=== PATIENT | female | born 1950 | race African-American/Black ===

== ENCOUNTER 2020-04-27 09:43 | Outpatient (CLI) | payer MEDICARE, SELFPAY ==
--- NOTE | ~2020-04-27 | MM_ITS ---
EXAMINATION: MM screening luisito BI w teagan HISTORY: Screening mammogram TECHNIQUE: Craniocaudal and mediolateral oblique 3-D tomosynthesis images were obtained and synthetic 2-D images were generated. CAD analysis was submitted and interpreted. COMPARISON: 03/10/2019, 02/25/2018, 02/23/2017 bilateral digital screening mammogram examinations BREAST PARENCHYMAL COMPOSITION: FINDINGS: There is no evidence of suspicious mass, calcification, or architectural distortion to sugg est malignancy in either breast. There has been no suspicious interval change. IMPRESSION: 1. No mammographic evidence of malignancy. 2. Recommend routine screening mammography in one year. BI-RADS Category 1: Negative Reviewed, dictated and finalized at location A.
== END 2020-04-27 09:44 | disposition home or self-care (01) ==
PROVIDERS: PCP Family Medicine; Visit Provider Family Medicine
DX: Z12.31 Encounter for screening mammogram for malignant neoplasm of breast (principal)
CPT/HCPCS: 77063; 77067

== ENCOUNTER 2021-05-17 07:59 | Outpatient (CLI) | payer MEDICARE, SELFPAY ==
--- NOTE | ~2021-05-17 | MM_ITS ---
EXAMINATION: MM screening luisito BI w teagan HISTORY: Screening mammogram TECHNIQUE: Craniocaudal and mediolateral oblique 3-D tomosynthesis images were obtained and synthetic 2-D images were generated. CAD analysis was submitted and interpreted. COMPARISON: 04/27/2020, 03/10/2019, 02/25/2018 bilateral digital screening mammogram examinations BREAST PARENCHYMAL COMPOSITION: The breasts are heterogeneously dense, which may obscure small masses . FINDINGS: There is no evidence of suspicious mass, calcification, or architectural distortion to sugg est malignancy in either breast. There has been no suspicious interval change. IMPRESSION: 1. No mammographic evidence of malignancy. 2. Recommend routine screening mammography in one year. BI-RADS Category 1: Negative Reviewed, dictated and finalized at location A.
== END 2021-05-17 08:00 | disposition home or self-care (01) ==
PROVIDERS: PCP Family Medicine; Visit Provider Physician Assistant
DX: Z12.31 Encounter for screening mammogram for malignant neoplasm of breast (principal)
CPT/HCPCS: 77063; 77067

== ENCOUNTER 2022-07-12 12:16 | Outpatient (CLI) | payer MEDICARE, SELFPAY ==
--- NOTE | ~2022-07-12 | MM_ITS ---
EXAMINATION: MM screening luisito BI w teagan HISTORY: Screening TECHNIQUE: Craniocaudal and mediolateral oblique 3-D tomosynthesis images were obtained and synthetic 2-D images were generated. CAD analysis was submitted and interpreted. COMPARISON: Comparison to multiple prior studies sequentially, with oldest reviewed study dated 02/23. BREAST PARENCHYMAL COMPOSITION: The breasts are heterogeneously dense, which may obscure small masses FINDINGS: There is no evidence of suspicious mass, calcification, or architectural distortion to sugg est malignancy in either breast. There has been no suspicious interval change. IMPRESSION: 1. No mammographic evidence of malignancy. 2. Recommend routine screening mammography in one year. BI-RADS Category 1: Negative Reviewed, dictated and finalized at location D.
== END 2022-07-12 12:17 | disposition home or self-care (01) ==
PROVIDERS: PCP Family Medicine; Visit Provider Family Medicine
DX: Z12.31 Encounter for screening mammogram for malignant neoplasm of breast (principal)
CPT/HCPCS: 77063; 77067

== ENCOUNTER 2022-08-22 14:38 | Outpatient (CLI) | payer MEDICARE, SELFPAY ==
--- NOTE | ~2022-08-22 | DEXA_ITS ---
Bone Density Report Name: SHANE RYAN Age: 71 Sex: Female Ethnicity: Black Date of : 1950 Indication: postmenopausal; screening for osteoporosis; hysterectomy; secondary osteoporosis; Referring Provider: SEAN CONNOLLY Study: Bone densitometry was performed. Exam Date: August 22, 2022 Accession number: [id number] Bone Density: Region BMD T-score Z-score Classification AP Spine(L1-L4) 0.871 -1.6 -0.2 Osteopenia Femoral Neck (Left) 0.602 -2.2 -1.0 Osteopenia Total Hip (Left) 0.811 -1.1 -0.3 Osteopenia Femoral Neck (Right) 0.556 -2.6 -1.3 Osteoporosis Total Hip (Right) 0.809 -1.1 -0.3 Osteopenia Total Hip Mean 0.810 -1.1 -0.3 Osteopenia World Health Organization criteria for BMD impression classify patients as: Normal (T-score at or above -1.0), Osteopenia (T-score between -1.0 and -2.5), or Osteoporosis (T-score at or below -2.5). 10-year Fracture Risk: FRAX not reported because: Some T-score for Spine Total or Hip Total or Femoral Neck at or below -2.5 Treated for osteoporosis Clinical Information Provided by Patient: Has secondary osteoporosis Is being treated for osteoporosis Has used the following medications: Fosamax (i.e. alendronate), HRT (i.e. estrogen/hormone therapy), Vitamin D Has the following medical conditions: Hysterectomy Patient maximum height was 65 Menopause Age: 31 Does not regularly consume dairy products Drinks caffeinated beverages Onset of menses at age 17 Number of children 2 Impression: The patient has osteoporosis, based on the Right Femoral Neck T-score. Discussion: It is important to ask patients whether they are taking their medications and to encourage continued and appropriate compliance with their osteoporosis therapies to reduce fracture risk. It is also important to review their risk factors and encourage appropriate calcium and vitamin D intakes, exercise, fall prevention and other lifestyle measures. Follow-Up: Consider a repeat BMD and Vertebral Fracture Assessment (VFA) exam in 2 years or sooner if medically necessary, to reassess this patient's status. Reported by: MALICK on 08/22/2022 3:12:00 PM. Reviewed, dictated and finalized at location ACarlos ARMANDO
== END 2022-08-22 14:39 | disposition home or self-care (01) ==
PROVIDERS: PCP Family Medicine; Visit Provider Nurse Practitioner
DX: M81.0 Age-related osteoporosis without current pathological fracture (principal); M85.88 Other specified disorders of bone density and structure, other site; M85.852 Other specified disorders of bone density and structure, left thigh; M85.851 Other specified disorders of bone density and structure, right thigh
CPT/HCPCS: 77080

== ENCOUNTER 2022-09-14 06:41 | Outpatient (CLI) | payer MEDICARE, SELFPAY ==
--- NOTE | ~2022-09-14 | MR_ITS ---
MRI of the abdomen: Clinical indication: Adrenal mass. Technique: Coronal SSFSE ARC, WATER:coronal LAVA-FLEX, Coronal 2D FIESTA FatSat, Axial SSFSE BH ARC, Axial 3D DualEcho BH, Axial SSFSE-IR, Axial DWI b=500, Axial 2D FIESTA FatSat, pre and dynamic postco ntrast Axial LAVA ARC, postcontrast Coronal In and Opposed phase LAVA FLEX. 12 cc of MultiHance was a dministered intravenously for postcontrast imaging. Findings: There is a 9-10 mm left adrenal nodule, which demonstrates signal loss on out of phase T1-w eighted imaging relative to in phase and aging. This is can cysts and with an adenoma. Liver, gallbladder, spleen, pancreas, right adrenal gland, and right kidney are unremarkable. Small h yperdense left renal cysts noted. No evidence for intrahepatic or extrahepatic biliary dilatation. No lymphadenopathy. No aortic aneurysm. Visualized bowel loops are unremarkable. No ascites. No abnormal postcontrast enhancement. Impression: 9 mm left adrenal adenoma. Reviewed, dictated and finalized at [facility]. EDORE HOLD Impression: 9 mm left adrenal adenoma.
== END 2022-09-14 06:42 | disposition home or self-care (01) ==
PROVIDERS: PCP Family Medicine; Visit Provider Nurse Practitioner
DX: R93.5 Abnormal findings on diagnostic imaging of other abdominal regions, including retroperitoneum (principal); D35.02 Benign neoplasm of left adrenal gland
CPT/HCPCS: 74183; A9577

== ENCOUNTER → 2023-05-29 09:24 | Outpatient (CLI) | payer MEDICARE, SELFPAY ==
--- NOTE | ~2023-05-29 | XR_ITS ---
Left Shoulder Technique: AP and axillary views were obtained. Clinical History: Pain Findings: No fracture or dislocation is seen. Osseous alignment is anatomic. The glenohumeral and acr omioclavicular joint spaces are preserved. Soft tissues are unremarkable. Impression: Unremarkable left shoulder radiographs. Reviewed, dictated and finalized at [facility]. Impression: Unremarkable left shoulder radiographs.
--- NOTE | ~2023-05-29 | XR_ITS ---
Left Knee Technique: AP, lateral, and sunrise views were obtained. Clinical History: Pain Findings: No fracture or dislocation is seen. Osseous alignment is anatomic. There is mild degenerati ve change of the medial patellofemoral compartments. Soft tissues are unremarkable. No joint effusion is seen. Impression: Mild degenerative change of the medial and patellofemoral compartments. Reviewed, dictated and finalized at location . Impression: Mild degenerative change of the medial and patellofemoral compartments.
== END ==
PROVIDERS: PCP Nurse Practitioner; Visit Provider Nurse Practitioner
DX: M25.512 Pain in left shoulder (principal); M17.12 Unilateral primary osteoarthritis, left knee
CPT/HCPCS: 73030; 73562

== ENCOUNTER 2023-07-17 13:39 | Outpatient (CLI) | payer MEDICARE, SELFPAY ==
--- NOTE | ~2023-07-17 | MM_ITS ---
EXAMINATION: MM screening luisito BI w teagan HISTORY: Screening TECHNIQUE: Craniocaudal and mediolateral oblique 3-D tomosynthesis images were obtained and synthetic 2-D images were generated. CAD analysis was submitted and interpreted. COMPARISON: Comparison to multiple prior studies sequentially, with oldest reviewed study dated 02/23. BREAST PARENCHYMAL COMPOSITION: The breasts are heterogeneously dense, which may obscure small masses FINDINGS: There is no evidence of suspicious mass, calcification, or architectural distortion to sugg est malignancy in either breast. There has been no suspicious interval change. IMPRESSION: 1. No mammographic evidence of malignancy. 2. Recommend routine screening mammography in one year. BI-RADS Category 1: Negative Reviewed, dictated and finalized at location A. FING MANAGER
== END 2023-07-17 13:40 | disposition home or self-care (01) ==
LOC: CHSIMG 13:40
PROVIDERS: PCP Family Medicine; Visit Provider Family Medicine
DX: Z12.31 Encounter for screening mammogram for malignant neoplasm of breast (principal)
CPT/HCPCS: 77063; 77067

== ENCOUNTER 2023-10-09 13:17 | Outpatient (CLI) | payer MEDICARE, SELFPAY ==
--- NOTE | ~2023-10-09 | MR_ITS ---
MR arthrogram of the left shoulder Technique: Following intra-articular injection of dilute gadolinium, axial T2 fat-sat and T1 fat-sat images, coronal T2 fat-sat and T1 fat-sat images, and sagittal T1-weighted and T2 fat-sat images were performed.. Clinical History: Impingement Findings: There is moderate AC joint degenerative change with subchondral spur at the subacromion, an d bony productive change of the distal clavicle. Coracoclavicular, coracoacromial, and coracohumeral ligaments appear intact. Supraspinatus and infraspinatus tendons are intact, without partial or full-thickness tear. There is mild to moderate tendinosis. Subscapularis tendon is intact. Tendon of long head of the biceps is int act. There is superior labral tear. Inferior glenohumeral ligament is intact. No contrast extravasation into the subacromial/subdeltoid b ursa. No muscle atrophy or edema. There is focal chondromalacia at the inferomedial humeral head. Impression: Superior lateral tear. Rotator cuff tendinosis without partial or full-thickness tear. Moderate AC joint degenerative change. Reviewed, dictated and finalized at [facility]. E REFINISHER Impression: Superior lateral tear. Rotator cuff tendinosis without partial or full-thickness tear. Moderate AC joint degenerative change.
--- NOTE | ~2023-10-09 | XR_ITS ---
EXAMINATION: XR fl inj shoulder LT - MR/CT DATE: 10/09/2023 14:11 INDICATION: Left shoulder pain with impingement. No prior surgery or dislocation. TECHNIQUE: A time-out was performed to verify the patient's name, date of , and procedure to b e performed. The procedure including the risks, benefits, and alternatives was discussed with the pat ient. Risks discussed included bleeding and infection. The patient understood the risks and agreed to proceed. The skin overlying the left glenohumeral joint was prepped and draped in usual sterile fash ion. Anesthetic was administered with 1% lidocaine subcutaneously. A 22 G needle was advanced under fluoroscopic guidance into the joint. Subsequently, injectate consisting of 12 mL of 1:200 Multihan ce, 1:4 1% lidocaine, and 1:4 Omnipaque 240 was instilled. The needle was removed and the entry site was cleaned and dressed. There were no immediate complications. Fluoroscopy exposure time was 0.1 m inutes. The total number of images was 3. FINDINGS: Real-time fluoroscopy demonstrates the needle and contrast in the left glenohumeral joint. IMPRESSION: 1. Successful left glenohumeral joint injection of contrast for subsequent MR arthrography. Reviewed, dictated and finalized at location A. [employer] IMPRESSION: 1. Successful left glenohumeral joint injection of contrast for subsequent MR a rthrography.
== END 2023-10-09 13:18 | disposition home or self-care (01) ==
PROVIDERS: PCP Family Medicine; Visit Provider Anesthesiology Pain Medicine
DX: M75.40 Impingement syndrome of unspecified shoulder (principal); M19.012 Primary osteoarthritis, left shoulder
CPT/HCPCS: 23350; 73222; A9577; Q9966

== ENCOUNTER 2024-03-10 10:03 | Outpatient (CLI) | payer MEDICARE, SELFPAY ==
--- NOTE | 2024-03-31 07:40 | WPDSLEEPSTUD ---
Sleep Study Date of Study: 03/10/24 Ordering Provider: Susan Noble DO Interpreting Physician: Katie Vásquez DO Sleep Study Type: Polysomnogram Height: 1.63 m Weight: 68.039 kg Body Mass Index: 25.7 Neck Circumference (inches): 14 [place]: 15 Reason for Sleep Study Nocturnal gasping, daytime hypersomnia Sleep History The patient is a 73-year-old female that had a sleep study ordered by her primary care physician for the evaluation of sleep apnea. The patient frequently awakens from sleep short of breath. She frequently awakens at night with cough green. She is unsure if she snores because she lives alone. She frequently has trouble sleeping when she has a cold. She frequently wakes up gasping for air throughout the night. She rarely has breathing problems at night observed by herself or others. She frequently sweats excessively at night. She rarely has heart palpitations or irregular heartbeats during the night. She constantly falls asleep during the day but never while driving. She denies cataplexy. She denies having trouble at school or work due to sleepiness. She had episodes of sleep paralysis as a child. She denies hypnagogic / hypnopompic hallucinations. She occasionally feels afraid of going to sleep. She denies having nightmares. She rarely remembers her dreams. She rarely has thoughts racing through her mind. She rarely feels sad, depressed or anxious. She frequently has muscular tension. She does notice her hands jerking during the night. She occasionally kicks during the night. She occasionally has crawling and aching feelings in her legs and occasionally has leg pain during the night. She denies grinding her teeth during sleep and denies awakening with morning jaw pain. She is constantly bothered by pain during the day and occasionally awakened by pain during the night. She occasionally wakes up feeling stiff in the morning. She occasionally wakes up with sore or achy muscles. She frequently wakes up with pain in the neck, spine and other joints. She goes to bed at 10-11 p.m. on weekdays and at 10:00 p.m. on the weekends. It takes her 15 minutes to fall asleep. She wakes up 3-4 times throughout the night but is able to fall back asleep within a minute. She wakes up at 5:00 a.m. on both weekdays and weekends. She typically gets 6 hours of sleep per night. She stays in bed for 5 minutes after waking up in the morning. She currently lives alone. She denies consuming any caffeinated beverages within 2 hours of bedtime. She denies engaging in physical exercise before bedtime. She will watch television before falling asleep. She will take naps in the afternoon or the evening and they are refreshing. She consumes 2 cups of coffee and 2 cups of soda or caffeinated tea per day. She quit smoking cigarettes 8 years ago. She denies alcohol and recreational drug use. [facility] Past Medical History Medical History Hepatitis C antibody test negative (10/31/21) High risk for fracture due to osteoporosis by DEXA scan 02-13-2017 Normal colonoscopy Screening mammogram, encounter for 09-12-2013 Surgical History Surgical History History of hysterectomy Total 1984 Family History Family History Mother Family history of premature coronary heart disease Hypertension Family history of elevated blood lipids Acute myocardial infarction Cerebrovascular accident Carcinoma of colon Grandparent Family history of premature coronary heart disease Hypertension Acute myocardial infarction Cerebrovascular accident Malignant neoplasm of prostate Family history of coronary artery disease Carcinoma of colon Sibling Diabetes mellitus Hypertension Asthma Family history of seizure disorder Father Hypertension F
[2024-03-31 07:41] VITALS: BMI 25.7
== END 2024-03-11 06:46 | disposition home or self-care (01) ==
LOC: ANHCSM 10:07
PROVIDERS: PCP Family Medicine; Visit Provider Family Medicine
DX: G47.30 Sleep apnea, unspecified (principal); R06.83 Snoring; I10 Essential (primary) hypertension
CPT/HCPCS: 95810

== ENCOUNTER 2024-08-19 00:38 | Day surgery (SDC) | payer MEDICARE, SELFPAY ==
[2024-07-30 09:05] VITALS: BMI 24.2
[2024-08-19 12:17] VITALS: BP 156/93; PULSE 81; RESP 19; TEMP 36.2; O2SAT 99
--- NOTE | 2024-08-19 12:25 | P.PNAN_ITS ---
Anes - Initial Pre Proc Eval Procedure: Operation Date: 08/19/24 13:30 Proposed Procedures p Screening Colonoscopy - Robert Mart MD Date/Time: 08/19/24 12:25 Surgeon: Robert Mart MD Pre Op Diagnosis: Fam hx Colon Ca Patient Data Age: 73 Gender: F Height: 1.63 m Weight: 63.8 kg Last Vital Signs Temp 36.2 C L 08/19/24 12:17 Pulse 81 08/19/24 12:17 Resp 19 08/19/24 12:17 BP 156/93 H 08/19/24 12:17 Pulse Ox 99 08/19/24 12:17 O2 Del Method Room Air 08/19/24 12:17 Allergies Allergy/AdvReac Type Severity Reaction Status Date / Time docosahexaenoic acid (MaxEPA) Allergy Unknown Skin Verified 08/19/24 12:15 Reaction eicosapentaenoic acid Allergy Unknown Skin Verified 08/19/24 12:15 (MaxEPA) Reaction fish oil Allergy Unknown Skin Verified 08/19/24 12:15 Reaction omega-3 acid ethyl esters Allergy Unknown Skin Verified 08/19/24 12:15 Reaction omega-3 fatty acids (MaxEPA) Allergy Unknown Skin Verified 08/19/24 12:15 Reaction Sulfa (Sulfonamide Allergy Unknown unknown Verified 08/19/24 12:15 Antibiotics) aspirin AdvReac Mild Nausea Verified 08/19/24 12:15 [place] Allergy Intermediate Nausea and Uncoded 08/19/24 12:15 Vomiting Home Medications ?Medication ?Instructions ?Recorded ?Confirmed ?Type cholecalciferol (vitamin D3) 50 2,000 unit PO DAILY 07/14/19 08/19/24 History mcg (2,000 unit) capsule bupropion HCl 300 mg 24 hr tablet, See Rx Instructions .Route 10/15/23 08/19/24 Rx extended release .COMPLEX #90 tabs lisinopril 20 1 tablet PO BID #180 tabs 10/15/23 08/19/24 Rx mg-hydrochlorothiazide 12.5 mg tablet verapamil 240 mg 24 hr See Rx Instructions .Route 10/15/23 08/19/24 Rx capsule,extended release .COMPLEX #90 caps pravastatin 20 mg tablet 20 mg PO QHS 06/24/24 08/19/24 History alendronate 70 mg tablet 70 mg PO WEEKLY #12 tabs 08/14/24 08/19/24 Rx Patient hx anesthesia problems: none Family hx anesthesia problems: none Results Review: All pre-operative results and documents have been reviewed as part of the pre- operative evaluation. [facility] Past Medical History Medical History Hepatitis C antibody test negative (10/31/21) Normal colonoscopy Screening mammogram, encounter for 09-12-2013 High risk for fracture due to osteoporosis by DEXA scan 02-13-2017 Surgical History Surgical History History of hysterectomy Total 1984 Family History Family History Mother Family history of premature coronary heart disease Hypertension Family history of elevated blood lipids Acute myocardial infarction Cerebrovascular accident Carcinoma of colon Grandparent Family history of premature coronary heart disease Hypertension Acute myocardial infarction Cerebrovascular accident Malignant neoplasm of prostate Family history of coronary artery disease Carcinoma of colon Sibling Diabetes mellitus Hypertension Asthma Family history of seizure disorder Father Hypertension Family history of elevated blood lipids Acute myocardial infarction Patient's father is , Onset Age: 60 Social History Social History Smoking status: Former smoker Tobacco type: cigarettes Second hand tobacco smoke exposure: No Alcohol intake: never Substance use type: does not use Lack of Transportation: No Lack of Food: Never True Current Housing: I Have Housing Concerned About Future Housing: No Difficulty Paying Gas/Electric Bills: No Difficulty Paying for Meds: No Currently Unemployed: No Education: Master's Degree or Higher Difficulty w/ Childcare or Family Care: No Spiritual care concerns: No Anes - Eval Final PreProcedure Day of Procedure 08/19/24 12:25 Patient weight: normal Heart: regular rate and rhythm Lungs: clear to auscultation Airway: Mallampati scale class II Neurological: alert and oriented Last oral intake: >/= 8 hours ASA classification: III Emergent: no Anesthetic plan: proceed Anesthesia type and monitoring: general GIVS and standard monitoring Results Review: All pre-operative results and documents have been reviewed as part of the pre- operative evaluation. Informed Consent: The patient's anesthetic plan and its attendant risks and benefits were discussed with the patient/family/POA. Questions were solicited and answers provided to the satisfaction of the patient/family/POA.
[2024-08-19] MEDS: LACTATED RINGERS 1,000 ML 150 ML IV CONT (12:33)
--- NOTE | 2024-08-19 12:40 | PM.HPGS ---
History of Present Illness History of Present Illness Consent: Risks, benefits, and alternatives have been discussed and questions answered. Patient agrees to proceed with procedure. Chief complaint: Fam hx Colon Ca Narrative: Mirian Xiong is a 73 year old female with family h/o colon cancer in mother, last colonoscopy 2018 Review of Systems Review of Systems: All systems reviewed & are unremarkable except as noted in HPI and below PMFSH Past Medical History Medical History Hepatitis C antibody test negative (10/31/21) Normal colonoscopy Screening mammogram, encounter for 09-12-2013 High risk for fracture due to osteoporosis by DEXA scan 02-13-2017 Surgical History Surgical History History of hysterectomy Total 1984 Family History Family History Mother Family history of premature coronary heart disease Hypertension Family history of elevated blood lipids Acute myocardial infarction Cerebrovascular accident Carcinoma of colon Grandparent Family history of premature coronary heart disease Hypertension Acute myocardial infarction Cerebrovascular accident Malignant neoplasm of prostate Family history of coronary artery disease Carcinoma of colon Sibling Diabetes mellitus Hypertension Asthma Family history of seizure disorder Father Hypertension Family history of elevated blood lipids Acute myocardial infarction Patient's father is , Onset Age: 60 Social History Social History Smoking status: Former smoker Tobacco type: cigarettes Second hand tobacco smoke exposure: No Alcohol intake: never Substance use type: does not use Lack of Transportation: No Lack of Food: Never True Current Housing: I Have Housing Concerned About Future Housing: No Difficulty Paying Gas/Electric Bills: No Difficulty Paying for Meds: No Currently Unemployed: No Education: Master's Degree or Higher Difficulty w/ Childcare or Family Care: No Spiritual care concerns: No Meds Home Medications and Allergies Home Medications ?Medication ?Instructions ?Recorded ?Confirmed ?Type cholecalciferol (vitamin D3) 50 2,000 unit PO DAILY 07/14/19 08/19/24 History mcg (2,000 unit) capsule bupropion HCl 300 mg 24 hr tablet, See Rx Instructions .Route 10/15/23 08/19/24 Rx extended release .COMPLEX #90 tabs lisinopril 20 1 tablet PO BID #180 tabs 02/05/24 12/10/24 Rx mg-hydrochlorothiazide 12.5 mg tablet verapamil 240 mg 24 hr See Rx Instructions .Route 10/15/23 08/19/24 Rx capsule,extended release .COMPLEX #90 caps pravastatin 20 mg tablet 20 mg PO QHS 06/24/24 08/19/24 History alendronate 70 mg tablet 70 mg PO WEEKLY #12 tabs 08/14/24 08/19/24 Rx Allergies Allergy/AdvReac Type Severity Reaction Status Date / Time docosahexaenoic acid (MaxEPA) Allergy Unknown Skin Verified 08/19/24 12:15 Reaction eicosapentaenoic acid Allergy Unknown Skin Verified 08/19/24 12:15 (MaxEPA) Reaction fish oil Allergy Unknown Skin Verified 08/19/24 12:15 Reaction omega-3 acid ethyl esters Allergy Unknown Skin Verified 08/19/24 12:15 Reaction omega-3 fatty acids (MaxEPA) Allergy Unknown Skin Verified 08/19/24 12:15 Reaction Sulfa (Sulfonamide Allergy Unknown unknown Verified 08/19/24 12:15 Antibiotics) aspirin AdvReac Mild Nausea Verified 08/19/24 12:15 [place] Allergy Intermediate Nausea and Uncoded 08/19/24 12:15 Vomiting Vital Signs Vital Signs - 24 hr 08/19/24 12:17 Temperature 97.2 F L Pulse Rate 81 Respiratory Rate 19 Blood Pressure 156/93 H Pulse Oximetry 99 Oxygen Delivery Room Air Exam Const: General: comfortable and no acute distress HENMT: Face/Nose/Sinus: Normal nares present Eyes: General: appearance normal, both eyes and all related structures Neck: Neck: no JVD Resp: Auscultation: clear to auscultation bilaterally Cardio: Rate: regular rate Rhythm: regular rhythm GI: Inspection: non-distended GI Palp: Yes Soft to palpation Skin: General skin exam: normal color Neuro: General: gait normal Speech: normal speech Extrem: General: normal to inspection Psych: Mental Status: mental status grossly normal Assessment and Plan Assessment and plan (1) Family history of colon cancer: Code(s): Z80.0 - Family history of malignant neoplasm of digestive organs Status: Acute Assessment and Plan: colonoscopy
[2024-08-19 12:53] VITALS: BP 107/60; PULSE 75; RESP 19; O2SAT 100
[2024-08-19 13:03] VITALS: BP 129/66; PULSE 73; RESP 13; O2SAT 100
[2024-08-19 13:13] VITALS: BP 124/89; PULSE 74; RESP 20; O2SAT 100
== END 2024-08-19 13:35 | disposition home or self-care (01) ==
PROVIDERS: PCP Family Medicine; Visit Provider Internal Medicine Gastroenterology
PROC: 0DJD8ZZ Inspection of Lower Intestinal Tract, Via Natural or Artificial Opening Endoscopic (ICD-10-PCS; CPT 45378; principal; 2024-08-19 13:30)
DX: Z12.11 Encounter for screening for malignant neoplasm of colon (principal); D12.2 Benign neoplasm of ascending colon; K57.30 Diverticulosis of large intestine without perforation or abscess without bleeding; M81.0 Age-related osteoporosis without current pathological fracture; Z79.83 Long term (current) use of bisphosphonates; Z98.890 Other specified postprocedural states; Z87.891 Personal history of nicotine dependence; Z80.0 Family history of malignant neoplasm of digestive organs; Z80.49 Family history of malignant neoplasm of other genital organs; Z82.49 Family history of ischemic heart disease and other diseases of the circulatory system
CPT/HCPCS: 45385; 88305; J2704; J7120

== ENCOUNTER 2024-08-28 11:57 | Outpatient (CLI) | payer MEDICARE, SELFPAY ==
--- NOTE | ~2024-08-28 | MM_ITS ---
EXAMINATION: MM screening luisito BI w teagan HISTORY: Screening TECHNIQUE: Craniocaudal and mediolateral oblique 3-D tomosynthesis images were obtained and synthetic 2-D images were generated. CAD analysis was submitted and interpreted. COMPARISON: Comparison to multiple prior studies sequentially, with oldest reviewed study dated 02/25. BREAST PARENCHYMAL COMPOSITION: Dense: The breasts are heterogeneously dense, which may obscure small masses FINDINGS: There is no evidence of suspicious mass, calcification, or architectural distortion to sugg est malignancy in either breast. There has been no suspicious interval change. IMPRESSION: 1. No mammographic evidence of malignancy. 2. Recommend routine screening mammography in one year. BI-RADS Category 1: Negative Reviewed, dictated and finalized at location B. MINER
--- NOTE | ~2024-08-28 | DEXA_ITS ---
Bone Density Report Name: SHANE RYAN Age: 73 Sex: Female Ethnicity: White Date of : 1950 Indication: postmenopausal; screening for osteoporosis; height loss; hysterectomy; Referring Provider: Susan Noble Study: Bone densitometry was performed. Exam Date: August 28, 2024 Accession number: [id number] Bone Density: Region BMD T-score Z-score Classification AP Spine(L1-L4) 0.868 -1.6 0.7 Osteopenia Femoral Neck (Left) 0.579 -2.4 -0.5 Osteopenia Total Hip (Left) 0.820 -1.0 0.7 Normal Femoral Neck (Right) 0.535 -2.8 -0.9 Osteoporosis Total Hip (Right) 0.809 -1.1 0.6 Osteopenia Femoral Neck Mean 0.557 -2.6 -0.7 Osteoporosis Total Hip Mean 0.814 -1.0 0.6 Normal World Health Organization criteria for BMD impression classify patients as: Normal (T-score at or above -1.0), Osteopenia (T-score between -1.0 and -2.5), or Osteoporosis (T-score at or below -2.5). 10-year Fracture Risk: FRAX not reported because: Some T-score for Spine Total or Hip Total or Femoral Neck at or below -2.5 Treated for osteoporosis Clinical Information Provided by Patient: Is being treated for osteoporosis Has used the following medications: Fosamax (i.e. alendronate), Vitamin D Has the following medical conditions: Hysterectomy Patient maximum height was 65 Menopause Age: 31 No regular weight bearing exercise Does not regularly consume dairy products Drinks caffeinated beverages Onset of menses at age 17 Number of children 2 Impression: The patient has osteoporosis, based on the Right Femoral Neck T-score. Discussion: It is important to ask patients whether they are taking their medications and to encourage continued and appropriate compliance with their osteoporosis therapies to reduce fracture risk. It is also important to review their risk factors and encourage appropriate calcium and vitamin D intakes, exercise, fall prevention and other lifestyle measures. Follow-Up: Consider a repeat BMD and Vertebral Fracture Assessment (VFA) exam in 2 years or sooner if medically necessary, to reassess this patient's status. Reported by: JEFFERSON on 08/28/2024 12:31:00 PM. Reviewed, dictated and finalized at location A.
== END 2024-08-28 11:58 | disposition home or self-care (01) ==
LOC: CHSIMG 11:58
PROVIDERS: PCP Family Medicine; Visit Provider Family Medicine
DX: Z12.31 Encounter for screening mammogram for malignant neoplasm of breast (principal); M85.88 Other specified disorders of bone density and structure, other site; M81.0 Age-related osteoporosis without current pathological fracture; Z13.820 Encounter for screening for osteoporosis
CPT/HCPCS: 77063; 77067; 77080

== ENCOUNTER 2025-02-24 13:45 | Outpatient (CLI) | payer MEDICARE, SELFPAY ==
--- NOTE | ~2025-02-24 | MR_ITS ---
MRI of the right hip Clinical history: Pain Technique: Coronal T1-weighted, T2-weighted, and proton-density fat-sat images, and axial T1-weighted and proton-density fat-sat images were acquired through the pelvis. Coronal T2-weighted images and c oronal, axial, and sagittal proton-density fat-sat images were acquired through the right hip. Findings: There is no fracture or avascular necrosis or hip. Bone marrow signals the proximal femora and pelvic bones are unremarkable. There is minimal chondromalacia of the left hip joint. Right hip j oint articular cartilage is well preserved. No joint effusion seen on either side. No right acetabula r labral tear identified. Visualized musculature about the pelvis and right hip is unremarkable. No muscle atrophy or edema see n. Probable minimal tendinosis of the distal right gluteus medius and minimus tendons. No soft tissue mass or fluid collection. IMPRESSION: Probable minimal tendinosis of the distal right gluteus medius and minimus tendons. Minimal diffuse chondromalacia of the left hip joint. Reviewed, dictated and finalized at location M. IMPRESSION: Probable minimal tendinosis of the distal right gluteus medius and minimus tend ons. Minimal diffuse chondromalacia of the left hip joint.
--- OUTSIDE RECORDS SUMMARY | 2025-02-24 14:33 | XMS_ITS | Referral Summary ---
Author Organization [facility] Address [address] [place] [phone] Care Team Providers Care Hospitalist Medical Director Name Role Phone Jose Do MD Primary Care Provider [phone] Allergies Active Allergy Reactions Criticality Noted Date Comments Sulfa (Sulfonamide Antibiotics) Active Problems Problem Noted Date Diagnosed Date Skin wrinkling 02/21/2013 Social History Tobacco Use Types Packs/Day Years Used Date Smoking Tobacco: Every Day Personal Safety Answer Date Recorded Getting School Help Needed Not on file 09/16 Comments Unknown Sex and Gender Information Value Date Recorded Sex Assigned at Not on file 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 Gender Identity Not on file Sexual Orientation Not on file Last Filed Vital Signs Vital Sign Reading Time Taken Comments Blood Pressure - - Pulse - - Temperature - - Respiratory Rate - - Oxygen Saturation - - Inhaled Oxygen Concentration - - Weight 54.4 kg (119 lb 15.9 oz) 03/06/2013 9:41 AM CDT Height 165.1 cm (5' 5) 03/06/2013 9:41 AM CDT Body Mass Index 19.97 03/06/2013 9:41 AM CDT Plan of Treatment Not on file [place] [address] [place] [address] A[employer] MEDICARE [facility] MEDICARE AETNA MEDICARE Care Teams Hospitalist Medical Director Relationship Specialty Start Date End Date Jose Do MD [address] [place] [address] PCP - General Family Medicine 11/09/22
--- OUTSIDE RECORDS SUMMARY | 2025-02-24 14:33 | XMS_ITS | Clinical Summary ---
Author Organization [facility] Address [address] [place] [address] Care Team Providers Care Plastic Products Sales Representative Name Role Phone Unavailable Primary Care Provider Unavailabl e Source Comments [facility] [employer],non-owned Affiliates and Associated Physician Practices is amultiple site organization consisting of ambulatory clinics and hospital sitesin [place], [place], [place] and [place]. This disclosure is being madepursuant to the Care Everywhere program and may not contain all information available regarding this patient. Last updated 18.[facility] [employer] Social History Tobacco Use Types Packs/Day Years Used Date Smoking Tobacco: Never Assessed Comments Unknown Sex and Gender Information Value Date Recorded Sex Assigned at Not on file Legal Sex Female 6:15 AM CDT Gender Identity Not on file Sexual Orientation Not on file Plan of Treatment Health Maintenance Due Date Last Done Comments BONE DENSITY TESTING 1950 COLOGUARD (AGES 45-75) - COL ON CA SCREENING 1950 COLON MONITORING 1950 COLONOSCOPY - COLON CA SCREENING 1950 CT COLONOGRAPHY - COLON CA SCREENING 1950 Colorectal Cancer Screening 1950 FIT - COLON CA SCREENING 1950 FLEX SIG - COLON CA SCREENING 1950 LIPID TESTING 1950 MAMMOGRAM 1950 HEPATITIS C SCREENING 09/30/1969 DTAP/TDAP/TD VACCINES (1 - Tdap) 1970 PNEUMOCOCCAL VACCINE 50+ (1 of 1 - PCV) 2001 ZOSTER VACCINE (1 of 2) 2001 COVID-19 VACCINE ( - 2023-2 5 season) 2024 DEPRESSION SCREENING 09/10/2024 MEDICARE AWV CALENDAR YEAR 2024 INFLUENZA VACCINE (Season Ended) 2025 Respiratory Syncytial Virus (RSV) Vaccine Pt: or over 60 yrs (1 - 1-dose 75+ series) 2026 HEPATITIS B VACCINE Aged Out No longe r eligible based on patient's age to complete this topic HIB VACCINE Aged Out No longer eligi ble based on patient's age to complete this topic HPV VACCINE Aged Out No longer eligi ble based on patient's age to complete this topic MENINGOCOCCAL (Group B) VACC INE SHARED DECISION-MAKING Aged Out No longer eligibl e based on patient's age to complete this topic MENINGOCOCCAL GROUPS A/C/Y/W VACCINE Aged Out No longer eligible b ased on patient's age to complete [place] [address] AETNA MEDICARE ADV SELF PAY NO INSURANCE Member Subscriber Plan / Payer (Ef fective for All Dates) Name:Mirian Ryan Member ID:Not on file Relation to Subscriber:Not on file Name:MIRIAN RYAN Subscriber ID:Not on file (Home) Address: [address] [address] [place] [address] Payer ID:Not on file Group ID:Not on file Type:Self Pay Address: [place], [place]
--- OUTSIDE RECORDS SUMMARY | 2025-02-24 14:33 | XMS_ITS | Encounter Summary ---
Author Organization [facility] Address [address] [place] [address] Care Team Providers Care Vehicle Detailer Name Role Phone Unavailable Primary Care Provider Obeyabl e Encounter Details Date Type Department Care Team (Late st Contact Info) Description 03/20/2023 Lab Requisition [facility] - DermPath Lab [address] [place] [phone] Darrel Flores MD [address] [place] [address] Social History Tobacco Use Types Packs/Day Years Used Date Smoking Tobacco: Never Assessed Comments Unknown Sex and Gender Information Value Date Recorded Sex Assigned at Not on file Legal Sex Female 6:15 AM CDT Gender Identity Not on file Sexual Orientation Not on file documented as of this encounter Plan of Treatment Not on file documented as of this encounter Procedures Procedure Name Priority Date/Time Associated Diagnosis Comments DERMATOPATHOLOGY Routine 03/16/2023 12:0 0 AM CDT documented in this encounter Results * DERMATOPATHOLOGY (03/16/2023 12:00 AM CDT) Case Report Dermatopathology Report Case: [id number] Authorizing Provider: Darrel Flores MD Collected: 03/16/2023 12:00 AM Ordering Location: [facility] DermPath Lab Received: 03/20/2023 06:28 AM Pathologist: Rosa Maria Anderson MD Specimen: Skin, left first finger web 3 5:00 PM CDT DERMATOPATHOLOGY LABORATORY Final Diagnosis Specimen A. 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 The specimen consists of a shave biopsy measuring 5x4x1 mm. Jar 0. 3 5:00 PM CDT DERMATOPATHOLOGY LABORATORY Microscopic Description Specimen A. SKIN, left first finger web: There are scattered dyskeratotic keratinocytes and vacuolar alteration along the basal cell layer. There is focal parakeratosis. In addition, an underlying band-like infiltrate composed mostly of lymphocytes focally obscures the dermal-epidermal junction with rare eosinophils. Grocott's methenamine silver (GMS) stain is negative for fungal elements in the sections examined. COMMENT: Histological differential includes lichen planus, a lichenoid drug eruption or lichenoid contact dermatitis. Clinicopathologic correlation is recommended. 3 5:00 PM CDT DERMATOPATHOLOGY LABORATORY Disclaimer An external and internal positive and negative controls are appropriate for the histochemical, immunohistochemical and immunofluorescence stain(s) in this case (if any), except where stated explicitly. The performance characteristics of the stain(s) cited in this report were developed and its performance characteristic determined by the Dermatopathology Laboratory at [facility], directed by Dr. Christina Eubanks. These tests need not be, and therefore are not, approved by the [place] Food and Drug Administration. The tests are used for clinical purposes. Billing Codes Specimen Charges Stain Charges 81600 1 94903 1 3 5:00 PM CDT DERMATOPATHOLOGY LABORATORY Embedded Images 3 5:00 PM CDT DERMATOPATHOLOGY LABORATORY Pathology/Cytolog y TISSUE SPECIMEN FROM SKIN / Unknown 03/16/2023 03/20/2023 6:28 AM CDT Darrel Flores MD LAB - PATHOLOGY/CYTOLOGY ORDER SHOAIB Final Result DERMATOPATHOLOGY LABORATORY [facility] - Department of Dermatology [address], [address] [phone] documented in this encounter Visit Diagnoses Not on filedocumented in this encounter
--- OUTSIDE RECORDS SUMMARY | 2025-02-24 14:33 | XMS_ITS | Clinical Summary ---
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 Gender Identity Not on file Sexual Orientation Not on file Obstetrics History Last Filed Vital Signs Vital Sign Reading [...] 03/06/2013 9:41 AM CDT Plan of Treatment Health Maintenance Due Date Last Done Comments Breast Cancer Screening-Mammogram 1950 Colon Cancer Screening-Colonoscopy 1950 Depression Screening 1950 Fall Risk Assessment 1950 Hepatitis C Screening 1950 Osteoporosis Screening-Bone Density Scan 1950 Hepatitis B Screening 1969 Well Visit 65+ 2016 Pneumococcal vaccine 65+ (2 of 2 - PCV) 01/28/2020 01/27/2019 Covid-19 Vaccine (4-2 5 season) 2024 06/16/2022, 03/22/2022, 07/04/2021, Additional history exists Influenza Vaccine (Season Ended) 2025 06/14/2022, 06/20/2021, 05/19/2020, Additional history exists DTaP/Tdap/Td Vaccine (3 - Td or Tdap) 04/10/2031 04/10/2021, 05/12/2020 Zoster Vaccine Completed 01/13/2021, 08/12/[address] T MEDICARE [employer] MEDICARE Care Teams Foster Care Case Manager Relationship Specialty Start Date End Date Jose Do MD [address] [place] [address] PCP - General Family Medicine 11/09/22
== END 2025-02-24 13:46 | disposition home or self-care (01) ==
PROVIDERS: PCP Family Medicine; Visit Provider Anesthesiology Pain Medicine
DX: M25.551 Pain in right hip (principal)
CPT/HCPCS: 73721

== ENCOUNTER 2025-09-01 08:19 | Outpatient (CLI) | payer MEDICARE, SELFPAY ==
--- NOTE | ~2025-09-01 | MM_ITS ---
EXAMINATION: MM screening luisito BI w teagan HISTORY: Screening. TECHNIQUE: Craniocaudal and mediolateral oblique 3-D tomosynthesis images were obtained and synthetic 2-D images were generated. CAD analysis was submitted and interpreted. COMPARISON: 2023, 2022, and 2021. BREAST PARENCHYMAL COMPOSITION: Dense: The breasts are heterogeneously dense, Which may obscure small masses. FINDINGS: No suspicious masses are seen. There are no suspicious calcifications. No unexplained architectural distortion is seen. There are no skin or nipple abnormalities identified. There is no adenopathy seen on the images submitted. IMPRESSION: No mammographic evidence to suggest malignancy is seen. The patient may return to screening mammography as per ACR guidelines. BI-RADS 1 - Negative. Reviewed, dictated and finalized at location C. TRIC SOLDERER
--- OUTSIDE RECORDS SUMMARY | 2025-09-01 08:24 | XMS_ITS | Clinical Summary ---
Author Organization [facility] Address [address] [place] [address] Care Team Providers Care Extension Educator Name Role Phone Jose Do MD Primary Care Provider [phone] Allergies Active Allergy Reactions Criticality Noted Date Comments Aspirin GI Upset 10/14/2018 Fish Oil Rash Low 10/14/2018 Sulfa Antibiotics Hives 10/14/2018 Medications ondansetron (ZOFRAN-ODT) 4 MG disintegrating tablet Take 1 tablet (4 mg total) by mouth every 8 (eight) hours as needed for Nausea. 20 tablet 2 Active famotidine (PEPCID) 20 MG tablet Take 1 tablet (20 mg total) by mouth 2 (two) times daily. 60 tablet 2 Active Social History Tobacco Use Types Packs/Day Years Used Date Smoking Tobacco: Former Cigarettes Q uit: 09/11/2018 Smokeless Tobacco: Never Alcohol Use Standard Drinks/Week Comments No 0 (1 standard drink = 0.6 oz pur e alcohol) AUDIT-C Answer Date Recorded Frequency of Alcohol Consumption Never 10/14/2018 Average Number of Drinks Not on file 019 Frequency of Binge Drinking Not on file 12/2018 Comments No Sex and Gender Information Value Date Recorded Sex Assigned at Female 01/12/2025 10:33 AM CDT Legal Sex Female 7:16 PM CDT Gender Identity Female 01/12/2025 10:33 AM CDT Sexual Orientation Not on file Last Filed Vital Signs Vital Sign Reading Time Taken Comments Blood Pressure 163/90 01/12/2025 11:09 AM CDT Pulse 81 01/12/2025 11:09 AM CDT Temperature 36.7 C (98 F) 01/12/2025 11:09 AM CDT Respiratory Rate 18 01/12/2025 11:09 AM CDT Oxygen Saturation 99% 01/12/2025 11:09 AM CDT Inhaled Oxygen Concentration - - Weight 70.3 kg (155 lb) 01/12/2025 10:22 AM CDT Height 162.6 cm (5' 4) 01/12/2025 10:22 AM CDT Body Mass Index 26.61 01/12/2025 10:22 AM CDT Plan of Treatment Health Maintenance Due Date Last Done Comments Colorectal Cancer Screening Colonoscopy (10 Years) 1950 Hepatitis C 1969 Mammogram Screening 1991 Annual Medicare Wellness Visit 2016 Dexa Scan (General) 2016 Pneumococcal Vaccine: 50+ Years (2 of 2 - PCV) 01/28/2020 01/27/2019 COVID-19 Vaccine ( - season) 2025 06/16/2022, 03/22/2022, 07/04/2021, Additional history exists Influenza Adult (#1) 2025 06/25/2019, 06/13/20 18 RSV Immunization or 60+ Years (1 - 1-dose 75+ series) 2026 DTaP, Tdap and Td Vaccines (3 - Td or Tdap) 04/10/2031 04/10/2021, 05/12/2020 Zoster Vaccines Completed 01/13/2021, 08/12/2020 Hepatitis A Vaccines Aged Out No long er eligible based on patient's age to complete this topic Meningococcal B Vaccine Aged Out No l onger eligible based on patient's age to complete this topic Meningococcal Vaccine Aged Out No frank emeka eligible based on patient's age to complete this topic RSV Immunizations Under 20 Months Aged Out No longer eligible based on patient's age to complete this topic Insurance AETNA MEDICARE Care Teams Extension Educator Relationship Specialty Start Date End Date Jose Do MD [address] [place] [address] PCP - General 05/14/14
--- OUTSIDE RECORDS SUMMARY | 2025-09-01 08:24 | XMS_ITS | Clinical Summary ---
Author Organization [facility] Address [address] [place] [address] Care Team Providers Care Fireproof Door Assembler Name Role Phone Unavailable Primary Care Provider Unavailabl e Source Comments [facility],non-owned Affiliates and Associated Physician Practices is amultiple site organization consisting of ambulatory clinics and hospital sitesin [place], [place], [place] and [place]. This disclosure is being madepursuant to the Care Everywhere program and may not contain all information available regarding this patient. Last updated 18.[facility] Social History Tobacco Use Types Packs/Day Years [...] 2001 ZOSTER VACCINE (1 of 2) 2001 DEPRESSION SCREENING 09/10/2024 MEDICARE AWV CALENDAR YEAR 2024 COVID-19 VACCINE (1 - 2024-2 6 season) 2025 INFLUENZA VACCINE (#1) 2025 Respiratory Syncytial Virus (RSV) Vaccine Pt: [...] patient's age to complete [place] [address] AETNA MEDICARE ADV SELF PAY NO INSURANCE Member Subscriber Plan / Payer (Ef fective for All Dates) Name:Mirian Ryan Member ID:Not on file Relation to Subscriber:Not on file Name:MIRIAN RYAN Subscriber ID:Not on file (Home) Address: [address] [place] [address] [place] [address] Payer ID:Not on file Group ID:Not on file Type:Self Pay Address: [place], [place]
--- OUTSIDE RECORDS SUMMARY | 2025-09-01 08:24 | XMS_ITS | Encounter Summary ---
Author Organization [facility] Address [address] [place] [address] Care Team Providers Care Golf Cart Attendant Name Role Phone Unavailable Primary Care Provider Unavailabl e Encounter Details Date Type Department Care Team (Late st Contact Info) Description 03/20/2023 Lab Requisition [facility] - DermPath Lab [address] [phone] Darrel Flores MD [address] [place] [address] Social History Tobacco Use Types [...] AM CDT) Case Report Dermatopathology Report Case: [id number] Authorizing Provider: Darrel Flores MD Collected: 03/16/2023 12:00 AM Ordering Location: [facility] DermPath Lab Received: 03/20/2023 06:28 AM Pathologist: Rosa Maria Anderson MD Specimen: Skin, left first finger web 3 5:00 PM CDT DERMATOPATHOLOGY LABORATORY Final Diagnosis Specimen A. 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 The specimen consists of a shave biopsy measuring 5x4x1 mm. Jar 0. 3 5:00 PM T DERMATOPATHOLOGY LABORATORY Microscopic Description Specimen A. SKIN, [...] Clinicopathologic correlation is recommended. 3 5:00 PM T DERMATOPATHOLOGY LABORATORY Disclaimer An external and internal positive and negative controls are appropriate for the histochemical, immunohistochemical and immunofluorescence stain(s) in this case (if any), except where stated explicitly. The performance characteristics of the stain(s) cited in this report were developed and its performance characteristic determined by the Dermatopathology Laboratory at [facility], directed by Dr. Christina Eubanks. These tests need not be, and therefore are not, approved by the [place] Food and Drug Administration. The tests are used for clinical purposes. Billing Codes Specimen Charges Stain Charges 24447 1 05960 1 3 5:00 PM CDT DERMATOPATHOLOGY LABORATORY Embedded Images 3 5:00 PM T DERMATOPATHOLOGY LABORATORY Pathology/Cytolog y TISSUE SPECIMEN FROM SKIN / Unknown 03/16/2023 03/20/2023 6:28 AM CDT us Darrel Flores MD LAB - PATHOLOGY/CYTOLOGY ORDER SHOAIB Final Result DERMATOPATHOLOGY LABORATORY [facility] - Department of Dermatology [address], [address] Floor [place], [place] [id number] [place] [address] documented in this encounter Visit Diagnoses Not on filedocumented in this encounter
--- OUTSIDE RECORDS SUMMARY | 2025-09-01 08:25 | XMS_ITS | Encounter Summary ---
Author Organization [facility] Address [address] [place] [address] Care Team Providers Care Contact Lens Blocker Name Role Phone Jose Do MD Primary Care Provider Encounter Details Date Type Department Care Team (Late st Contact Info) Description 07/14/2017 [place] [address] , Generic Conversion, Social History Tobacco Use Types Packs/Day Years Used Date Smoking Tobacco: Never Assessed Comments Unknown Sex and Gender Information Value Date Recorded Sex Assigned at Female 01/12/2025 10:33 AM CDT Legal Sex Female 7:16 PM CDT Gender Identity Female 01/12/2025 10:33 AM CDT Sexual Orientation Not on file documented as of this encounter Plan of Treatment Not on file documented as of this encounter Visit Diagnoses Not on filedocumented in this encounter Care Teams Contact Lens Blocker Relationship Specialty Start Date End Date Jose Do MD [address] [place] [phone] PCP - General 05/14/14 documented as of this encounter
--- OUTSIDE RECORDS SUMMARY | 2025-09-01 08:25 | XMS_ITS | Clinical Summary ---
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 Gender Identity Not on file Sexual Orientation [...] 2 - PCV) 01/28/2020 01/27/2019 Covid-19 Vaccine (6 - 2025-2 6 season) 2025 06/16/2022, 03/22/2022, 07/04/2021, Additional history exists Influenza Vaccine (#1) 2025 , 06/20/2021, 05/19/2020, Additional history exists DTaP/Tdap/Td Vaccine (3 - Td or Tdap) 04/10/2031 04/10/2021, 05/12/2020 Zoster Vaccine Completed 01/13/2021, 08/12/[address] MEDICARE T MEDICARE T MEDICARE Care Teams Irrigation Engineer Relationship Specialty Start Date End Date Jose Do MD [address] [place] [address] PCP - General Family Medicine 11/09/22
== END 2025-09-01 08:20 | disposition home or self-care (01) ==
LOC: CHSIMG 08:20
PROVIDERS: PCP Family Medicine; Visit Provider Family Medicine
DX: Z12.31 Encounter for screening mammogram for malignant neoplasm of breast (principal)
CPT/HCPCS: 77063; 77067